=== PATIENT | male | born 1970 | race Caucasian/White ===

== ENCOUNTER → 2016-10-31 | Outpatient (CLI) | payer SELFPAY | END | disposition home or self-care (01) | LOC: LABWHC1 11:35 | PROVIDERS: ATTEND Internal Medicine | DX: Z00.5 Encounter for examination of potential donor of organ and tissue (principal) | CPT/HCPCS: 36415 ==

== ENCOUNTER → 2019-07-25 | Outpatient (CLI) | payer BC ==
--- NOTE | 2019-07-25 23:13 | MR ---
EXAMINATION TYPE: MR knee RT wo con DATE OF EXAM: 07/25/2019 COMPARISON: None HISTORY: Ganglion, right knee, Injury TECHNIQUE: Multiplanar, multisequence imaging of the right knee is performed without IV contrast. FINDINGS: There is anterior and posterior cruciate intact ligaments. There is mild knee joint effusion. There i s horizontal tear of the posterior horn medial meniscus extending to the inferior surface. The latera l meniscus appears intact. The collateral ligaments appear intact. I see no bony destructive process. Joint spaces are fairly normal. There is mild subcutaneous edema anterior to the tibial tubercle. IMPRESSION: There is a horizontal tear of the posterior horn medial meniscus. No evidence of ligamentous tear. Mi ld knee joint effusion. No fracture seen. No popliteal cyst.
== END | disposition home or self-care (01) ==
LOC: RADMRIMAIN 12:59
PROVIDERS: ATTEND Nurse Practitioner Family
DX: S83.8X1A Sprain of other specified parts of right knee, initial encounter (principal); M67.461 Ganglion, right knee

== ENCOUNTER → 2020-10-01 | Outpatient (CLI) | payer BC ==
--- NOTE | 2020-10-01 15:52 | XR ---
EXAMINATION TYPE: XR shoulder complete RT DATE OF EXAM: 10/01/2020 COMPARISON: NONE HISTORY: Pain TECHNIQUE: Shoulder examined in 3 views FINDINGS: The humeral head articulates with the glenoid. The acromio-clavicular junction is normal. No acute fractures or dislocations are evident. A follow up study can be performed 7-10 days from acute trauma for continued pain. IMPRESSION: 1. Normal three-view right Shoulder
--- NOTE | 2020-10-01 15:54 | XR ---
EXAMINATION TYPE: XR cervical spine comp DATE OF EXAM: 10/01/2020 COMPARISON: 09/09/2010 HISTORY: Cervicalgia TECHNIQUE: Five-view cervical spine FINDINGS: No acute osseous abnormality is evident. Foramen are patent. Prevertebral space is normal. Posterior spinal lamellar line is intact. There is some straightening of the cervical spine in the la teral projection. No acute osseous abnormality is evident. IMPRESSION: 1. No acute osseous abnormality cervical spine
== END | disposition home or self-care (01) ==
LOC: RADXRYALE 13:05
PROVIDERS: ATTEND Family Medicine
DX: M25.511 Pain in right shoulder (principal); M54.2 Cervicalgia
CPT/HCPCS: 72050

== ENCOUNTER → 2020-11-05 | Outpatient (CLI) | payer BC ==
--- NOTE | 2020-11-05 20:48 | MR ---
EXAMINATION TYPE: MR shoulder LT wo con DATE OF EXAM: 11/05/2020 COMPARISON: None available. HISTORY: Left shoulder pain. TECHNIQUE: Multiplanar, multisequence imaging of the left shoulder is performed without contrast. FINDINGS: Rotator Cuff: Moderate to high-grade partial thickness tear of the supraspinatus tendon with complain t of small 0.6 x 0.5 cm full-thickness tear of the anterior fibers at the footprint. Mild tendinosis and fraying of the subscapularis tendon cranial fibers. The infraspinatus and teres minor tendons are grossly intact. No significant atrophy or muscular edema of the rotator cuff. Acromioclavicular Joint: Moderate osteoarthritis. Glenohumeral Joint: Mild to moderate osteoarthritis. Labrum: Mild to moderate degeneration of the glenoid labrum. Biceps Tendon: The long head of biceps is in normal location within bicipital groove. Bone marrow signal: No focal abnormal marrow signal is appreciated. Other: Yugkk-yr-clqydjuw amount of fluid in the subacromial-subdeltoid bursa. IMPRESSION: Moderate to high-grade partial thickness tear of the supraspinatus tendon with component of small ant erior full-thickness tear. Associated subacromial-subdeltoid bursitis.
--- NOTE | 2020-11-05 21:32 | MR ---
EXAMINATION TYPE: MR shoulder RT wo con DATE OF EXAM: 11/05/2020 COMPARISON: None available. HISTORY: Right shoulder pain. TECHNIQUE: Multiplanar, multisequence imaging of the right shoulder is performed without contrast. FINDINGS: Rotator Cuff: 1.6 x 1.5 cm full-thickness tear of the supraspinatus tendon anterior fibers of the ten don retraction to the level of the subacromial space. Low to moderate grade partial-thickness tear of the subscapularis tendon cranial fibers and infraspinatus tendon anterior fibers. The teres minor te ndon is grossly intact. Mild atrophy of the supraspinatus muscle. No muscular edema. Acromioclavicular Joint: Moderate to severe osteoarthritis. Glenohumeral Joint: Moderate to severe osteoarthritis. Labrum: Degenerative tearing of the glenoid labrum. Biceps Tendon: The long head of biceps is in normal location within bicipital groove. There is modera te tendinosis of the intra-articular long head biceps tendon. Bone marrow signal: No focal abnormal marrow signal is appreciated. Other: Nppda-ix-vahblldw amount of fluid in the subacromial-subdeltoid bursa. IMPRESSION: Moderate sized, retracted, full-thickness tear of the right supraspinatus tendon anterior fibers. Ass ociated moderate atrophy. Low to moderate grade partial-thickness tear of the subscapularis and infraspinatus tendons. Subacromial-subdeltoid bursitis.
== END | disposition home or self-care (01) ==
LOC: RADMRIMAIN 18:05
PROVIDERS: ATTEND Family Medicine
DX: M75.112 Incomplete rotator cuff tear or rupture of left shoulder, not specified as traumatic (principal); M75.52 Bursitis of left shoulder; M75.121 Complete rotator cuff tear or rupture of right shoulder, not specified as traumatic; M62.511 Muscle wasting and atrophy, not elsewhere classified, right shoulder; M75.51 Bursitis of right shoulder

== ENCOUNTER → 2020-11-16 | Outpatient (CLI) | payer BC ==
--- NOTE | 2020-11-16 23:32 | MR ---
EXAMINATION TYPE: MR brain wo/w con DATE OF EXAM: 11/16/2020 COMPARISON: None HISTORY: Headaches CONTRAST: Standard multiplanar, multisequence MRI departmental protocol utilizing 10 mL intravenous Gadavist ga dolinium contrast. Ventricles have normal size. There is no mass effect nor midline shift. There is no sign of intracran ial hemorrhage. The diffusion images show no evidence of a cortical infarct. The brainstem is intact. Corpus callosum is intact. Sella turcica appears normal. The gross-white matter structures have fairly normal signal pattern. There is no evidence of cerebral edema. There is minimal ethmoid sinus mucosal thickening. There is normal enhancement of the venous sinuses. There is no pathologic enhancement. IMPRESSION: Negative MR scan of the brain. Minimal ethmoid sinusitis.
== END | disposition home or self-care (01) ==
LOC: RADMRIMAIN 15:23
PROVIDERS: ATTEND Family Medicine
DX: I10 Essential (primary) hypertension (principal); R51.9 Headache, unspecified; R25.1 Tremor, unspecified
CPT/HCPCS: 70553; A9585

== ENCOUNTER → 2021-10-14 | Outpatient (CLI) | payer BC ==
--- NOTE | 2021-10-14 12:10 | FL ---
EXAMINATION TYPE: FL barium swallow DATE OF EXAM: 10/14/2021 CLINICAL HISTORY: Dysphasia. History of throat polyps. Recently tried on reflux medication without im provement of symptoms. TECHNIQUE: A double contrast esophagram is performed utilizing air and barium. A total of 22 second s of fluoroscopic time was utilized during procedure and 31 images obtained COMPARISON: None FINDINGS: The esophagus shows normal motility and emptying into the stomach. No evidence of fixed hi atal hernia or stricture noted. No significant gastroesophageal reflux was seen during real time perf ormance of this study. IMPRESSION: No significant abnormality is seen to account for patient's symptoms.
== END | disposition home or self-care (01) ==
LOC: RADUSWWP 10:49
PROVIDERS: ATTEND Otolaryngology
DX: R13.10 Dysphagia, unspecified (principal)
CPT/HCPCS: 74220

== ENCOUNTER → 2021-12-28 | Outpatient (CLI) | payer OTHER ==
[2021-12-28 14:56] LABS: Anion Gap 12.5 mmol/L (10.00-18.00); Carbon Dioxide 22.6 mmol/L (20.0-27.5); Potassium 4.3 mmol/L (3.5-5.5)
[2021-12-28 14:59] LABS: Basophils # (A) 0.04 X 10*3/uL (0.00-0.10); Basophils % (A) 0.7 %; Eosinophils # (A) 0.16 X 10*3/uL (0.04-0.35); Eosinophils % (A) 2.7 %; HCT 45.6 % (39.6-50.0); HGB 14.9 g/dL (13.0-17.0); Immature Grans, Automated 0.3 %; Lymphocytes # (A) 1.87 X 10*3/uL (0.90-5.00); Lymphocytes % (A) 31.2 %; MCH 30.5 pg (27.0-32.0); MCHC 32.7 g/dL (32.0-37.0); MCV 93.4 fL (80.0-97.0); Mean Platelet Volume 9.4 fL (9.5-12.2); Monocytes # (A) 0.61 X 10*3/uL (0.20-1.00); Monocytes % (A) 10.2 %; NRBC Per 100 WBC 0 /100 WBCS (0.0-0.0); Neutrophils % (A) 54.9 %; Platelet Count 246 X 10*3/uL (140-440); RBC 4.88 X 10*6/uL (4.40-5.60); RDW 12.8 % (11.5-14.5)
== END | disposition home or self-care (01) ==
LOC: LABPAT 07:46
PROVIDERS: ATTEND Orthopaedic Surgery
DX: Z01.812 Encounter for preprocedural laboratory examination (principal); M75.42 Impingement syndrome of left shoulder
CPT/HCPCS: 80051; 85025; 93005

== ENCOUNTER 2022-01-11 05:51 | Day surgery (SDC) | payer BC, OTHER ==
--- NOTE | 2022-01-10 23:17 | HP ---
HISTORY AND PHYSICAL REASON FOR ADMISSION: Surgery scheduled for 01/11/2022 HISTORY OF PRESENT ILLNESS: Miller Zamorano is a 51-year-old patient seen with progressive right shoulder pain. Options for treatment were discussed with him. He elected to proceed with right shoulder arthroscopy. Consent was obtained. PAST MEDICAL HISTORY: Noncontributory. PAST SURGICAL HISTORY: Right shoulder arthroscopy. DAILY MEDICATIONS: None. ALLERGIES: None reported. SOCIAL HISTORY: Denies tobacco use. PHYSICAL EVALUATION OF THE RIGHT SHOULDER: Flexion 140 degrees, abduction is 100 degrees, external rotation is 10 degrees with weakness. Tenderness along the anterior lateral acromion and acromioclavicular joint as well as rotator cuff insertion site. Impingement positive at 90 degrees. Cross- body adduction sign is positive. Drop-arm sign is positive. Distal neurovascular exam is intact. RADIOGRAPHS: Right shoulder radiographs revealed a type 2 acromion, acromioclavicular joint osteoarthritis and cystic changes of the greater tuberosity. Right shoulder MRI revealed a full-thickness rotator cuff tendon tear with evidence of previous surgery and osteoarthritis of the acromioclavicular joint. IMPRESSION: 1. Right shoulder impingement with rotator cuff tear. 2. Right shoulder acromioclavicular joint osteoarthritis. PLAN: Right shoulder arthroscopy with subacromial decompression, arthroscopic rotator cuff repair, Nate procedure and debridement. MMODL / IJN: [id number] /
[2022-01-11 06:15] VITALS: RESP 16
[2022-01-11] MEDS ORDERED: LIDOCAINE 1% (10MG/ML) FOR IV START INTRADERMA ONE (06:30)
[2022-01-11] MEDS ORDERED: LACTATED RINGERS 1,000 ML IV ONE (06:30)
[2022-01-11] MEDS ORDERED: ONDANSETRON 4 MG/2 ML VIAL ONE (06:41)
[2022-01-11] MEDS ORDERED: DEXAMETHASONE SOD PHOSPHATE 4 MG/ML 1 ML VIAL IV ONE (06:45)
[2022-01-11] MEDS ORDERED: SODIUM CHLORIDE 0.9% (PF) 10 ML VIAL ONE (07:31)
[2022-01-11] MEDS ORDERED: MIDAZOLAM 2 MG/2 ML VIAL ONE (07:31)
[2022-01-11] MEDS ORDERED: SUCCINYLCHOLINE CHLORIDE 100 MG/5 ML SYR IV ONE (07:31)
[2022-01-11] MEDS ORDERED: fentaNYL (PF) 50 MCG/ML 2 ML AMP ONE (07:31)
[2022-01-11] MEDS ORDERED: PROPOFOL 10 MG/ML 20 ML VIAL IV ONE (07:31)
[2022-01-11] MEDS ORDERED: ROPIVACAINE 5 MG/ML 30 ML VIAL ONE (07:31)
[2022-01-11] MEDS ORDERED: DEXAMETHASONE SOD PHOSPHATE 10 MG/ML 1 ML VIAL ONE (07:31)
[2022-01-11] MEDS ORDERED: LIDOCAINE 1% INJ 10MG/ML (20 ML MDV) ONE (07:31)
--- NOTE | 2022-01-11 07:58 | P.ANPRN ---
Procedure Note - Anesthesia - Nerve Block Performed Right Interscalene Single Time Out Performed: Yes (0701) Date of Procedure: 01/11/22 Procedure Start Time: : Procedure Stop Time: 07:06 Location of Patient: PreOp Indication: Acute Post-Operative Pain, Requested by Surgeon Sedation Type: Sedate with meaningful contact maintained Preparation: Sterile Prep Position: Sitting Catheter: None Needle Types: Pajunk Needle Gauge: 21 Ultrasound used to visualize needle placement: Yes Ultrasound used to observe medication spread: Yes Injectate: 0.5% Ropivacaine (see comment for volume) (21 mL of block solution containing- 15 mL of 0.5% preservative-free ropivacaine mixed with 10 MG of dexamethasone, and 5 mL of preservative free normal saline) Blood Aspirated: No Pain Paresthesia on Injection Noted: No Resistance on Injection: Normal Image Stored and Saved: Yes Events: Uneventful and Well Tolerated
--- NOTE | 2022-01-11 09:20 | P.OP ---
Date of Procedure: 01/11/22 Preoperative Diagnosis: Right shoulder impingement Postoperative Diagnosis: 1. Right shoulder rotator cuff tear 2. Right shoulder acromioclavicular joint osteoarthritis 3. Right shoulder impingement 4. Right shoulder partial long head biceps tendon tear Procedure(s) Performed: 1. Right shoulder arthroscopic rotator cuff repair 2. Right shoulder arthroscopic Nate procedure 3. Right shoulder arthroscopic subacromial decompression 4. Right shoulder arthroscopic biceps tenotomy Implants: 34.75 swivel lock anchors 15.5 Arthrex swivel lock anchor Anesthesia: GETA, regional (Interscalene block) Surgeon: Clint Puga Chummer #1: Romain Fontenot Estimated Blood Loss (ml): 8 Pathology: none sent Condition: stable Disposition: PACU Indications for Procedure: 51-year-old patient seen with progressive right shoulder pain. After treatment options were discussed, he elected to proceed with arthroscopy. Operative Findings: See description of procedure Description of Procedure: Patient underwent an interscalene block by department of anesthesia. The patient was then taken to the operative suite. The patient underwent a general anesthetic by the department of anesthesia. The patient was placed into a lateral position and secured. There was appropriate padding of the bony prominence. Right shoulder was then prepped and draped in normal sterile orthopedic fashion. We placed the extremity in 10 pounds of longitudinal traction. A posterior incision was now made for a posterior working portal site. The trocar and cannula were inserted into the glenohumeral joint. Arthroscopy was initiated. Spinal needle was now inserted anteriorly, to ascertain the anterior working portal site. An incision was now made in that area, a trocar was inserted followed by a probe. There were some grade 1 chondromalacia changes of the humeral head and glenoid fossa without significant osteochondral tear present. The biceps tendon was partially torn with hyperemia. There was a very large rotator cuff tendon tear that I could visualize easily from the glenohumeral joint. I performed an arthroscopic biceps tenotomy. I again probed the labrum and it was found to be stable. Instruments were now removed from glenohumeral joint. Utilizing the posterior working portal site, the trocar and cannula were inserted into the subacromial space. Arthroscopy initiated. I made an incision 2 fingerbreadths lateral to the acromion. I introduced my trocar followed by my ArthroCare ablator. I now began ablating thick subacromial bursal tissue, which exposed the undersurface of the anterior acromion. There was diminished subacromial space. There was a very prominent anterior acromion. A motorized bur was introduced and a subacromial decompression was performed. I also excised some osteophytes off the inferior aspect of the distal clavicle. The AC joint was visualized and noted to be fairly arthritic. The motorized bur was introduced in the anterior portal site and a Nate procedure was performed without difficulty, decompressing the AC joint nicely. I turned my attention to the rotator cuff. There was a 3.54 cm rotator cuff tear. There was evidence of a previous repair with residual suture material centrally in the footprint. I debrided that suture material. I grasped on the tendon over stable to barely pull it over the footprint. I performed a release proximally. I again pull the tendon I was able to get over the footprint reasonably well with some moderate tension. I debrided the margins getting down to stable tendon tissue. I introduced my motorized bur and abraded the footprint area, getting some petechial bleeding. I now made an accessory portal site off the lateral aspect of the acromion. I punched 2 holes medial for medial row fixation with the assistance of Chente STEIN carefully tapping the punch with a mallet as I held the punch and the camera. I now introduced both Arthrex 4.75 swivel lock anchors into the pre-punched holes and Chente STEIN tapped them with the mallet as I held anchors and the camera. Chente STEIN now screwed the anchors in place a while I held the anchor guide and camera. All 8 limbs of suture were now passed through good bites of rotator cuff tendon. I now punched 2 holes for lateral row fixation again I held the punch and camera while Chente STEIN used a mallet to tap in the punch. We now passed sutures through both anchors and individually I introduced the anchors into the pre-punch holes I held the anchor guide in position with one hand holding the camera with the other hand while Chente STEIN tensioned the sutures and screwed in the anchors one at a time. All residual suture limbs were now clipped. We had good compression of the tendon along the entire footprint. Instruments now removed from the portal sites. All portal sites were approximated with nylon suture. Sterile dressings were applied followed by a shoulder immobilizer. Romain STEIN assisted in this complex case. The patient was awakened, transferred to a bed, and taken to recovery in stable condition.
[2022-01-11 09:29] VITALS: TEMP 97
[2022-01-11 10:43] VITALS: BP 104/71; PULSE 59
== END 2022-01-11 11:32 | disposition home or self-care (01) ==
LOC: OR 05:51
PROVIDERS: ATTEND Orthopaedic Surgery
DX: M75.101 Unspecified rotator cuff tear or rupture of right shoulder, not specified as traumatic (principal); M19.011 Primary osteoarthritis, right shoulder; M25.811 Other specified joint disorders, right shoulder; S46.111A Strain of muscle, fascia and tendon of long head of biceps, right arm, initial encounter; X58.XXXA Exposure to other specified factors, initial encounter; M94.211 Chondromalacia, right shoulder; M25.711 Osteophyte, right shoulder; Z90.49 Acquired absence of other specified parts of digestive tract; Z98.890 Other specified postprocedural states
CPT/HCPCS: 64415; 76942; 29826; 29827; 29824; C1713 ×3; J2250; J1100 ×2; J0690; J2405; J2001; J3010; J2795; J0330; J2704

== ENCOUNTER → 2023-06-15 | Outpatient (CLI) | payer BC ==
[2023-06-15 10:21] LABS: Basophils % (A) 0 %; Eosinophils # (A) 0.2 k/uL (0-0.7); Eosinophils % (A) 3 %; HCT 46.9 % (39.0-53.0); HGB 15.7 gm/dL (13.0-17.5); Lymphocytes # (A) 2.5 k/uL (1.0-4.8); Lymphocytes % (A) 33 %; MCH 31.1 pg (25.0-35.0); MCHC 33.5 g/dL (31.0-37.0); MCV 92.6 fL (80.0-100.0); Monocytes # (A) 0.5 k/uL (0-1.0); Monocytes % (A) 6 %; Neutrophils # (A) 4.2 k/uL (1.3-7.7); Neutrophils % (A) 55 %; Platelet Count 270 k/uL (150-450); RBC 5.06 m/uL (4.30-5.90); RDW 12.9 % (11.5-15.5); WBC 7.6 k/uL (3.8-10.6)
[2023-06-15 15:56] LABS: BUN/Creat Ratio 17.67 Ratio (12.00-20.00); Blood Urea Nitrogen 15.9 mg/dL (9.0-27.0); Calcium 10.4 mg/dL (8.7-10.3); Carbon Dioxide 26.6 mmol/L (21.6-31.8); Chloride 103 mmol/L (96-109); Glucose 92 mg/dL (70-110); Potassium 5.1 mmol/L (3.5-5.5); Sodium 140 mmol/L (135-145)
--- NOTE | 2023-06-27 21:53 | MR ---
EXAMINATION TYPE: MR elbow LT wo con DATE OF EXAM: 06/15/2023 COMPARISON: Radiograph 06/12/2023 HISTORY: 52-year-old male Left elbow pain, lifting injury TECHNIQUE: Multiplanar, multisequence images of the left elbow were obtained without IV contrast. FINDINGS: The exam demonstrates distal biceps tendon rupture. The stump is retracted by 5.6 cm to the level of the elbow joint line. There is corresponding edema along the medial aspect of the anterior forearm along the superficial fa scia. Edema and hemorrhage along the intervening gap. The radial collateral ligament is torn. There is partial tear of the humeral attachment of the radial ulnar collateral ligament. Contiguous deep sided tearing extends into the common extensor tendon jennifer gin. The common flexor tendon origin pronator mass appear intact. The underlying UCL appears intact. The radiocapitellar and ulnar trochlear joints appear intact. Physiologic joint fluid. Triceps insertion is intact. Normal appearance to the ulnar nerve within the sulcus or nurse. Mild edema in the supinator muscle, likely reactive to the distal biceps tendon rupture. No acute or healing fracture or abnormal bone marrow edema is seen. IMPRESSION: 1. Distal biceps tendon rupture. The balled up stump is retracted by 5.6 cm to the level of the elbow joint line. Associated edema and hemorrhage within the intervening gap. 2. Additional edema along the superficial aspect of the anteromedial forearm suggests associated tear of the lacertus fibrosis. 3. Torn RCL at the humeral attachment. Partial tear of the lateral ulnar collateral ligament at the h umeral attachment. Contiguous tear extending into the deep insertion of the common extensor tendon or igin.
== END | disposition home or self-care (01) ==
LOC: RADMRIMAIN 07:30
PROVIDERS: ATTEND Orthopaedic Surgery Hand Surgery
DX: S53.432A Radial collateral ligament sprain of left elbow, initial encounter (principal); S46.212A Strain of muscle, fascia and tendon of other parts of biceps, left arm, initial encounter; S53.442A Ulnar collateral ligament sprain of left elbow, initial encounter; R60.0 Localized edema
CPT/HCPCS: 80048; 85025

== ENCOUNTER 2023-06-19 11:16 | Day surgery (SDC) | payer BC ==
--- NOTE | 2023-06-18 12:44 | P.HPOR ---
History of Present Illness H&P Date: 06/18/23 Subjective: This is a 52 year old male that presents today for initial evaluation regarding a left elbow injury that occurred on 05/12/2023 when he was lifting a piece of fencing and felt immediate pop and had pain, swelling and bruising in the anterior portion of his elbow. He went to urgent care where x-rays were taken which revealed no acute fracture. He's had continued pain with full extension. Any type of twisting movement of the elbow. 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 Physical Examination: LUE: AIN/PIN/Radial/Ulnar/Median motor intact. Radial/Ulnar/Median SILT. 2+/4 Radial/Ulnar pulses palpated. 5/5 APB, 5/5 FDI. Negative Finkelsteins, negative CMC grind, negative Durkan's compression. Distal biceps tendon not palpable antecubital fossa with hook test. Pain with resisted supination and resisted elbow flexion. Lowell deformity present. Imaging: X-Rays of the left elbow 3 view taken in office today demonstrate no abnormality. MRI of left elbow obtained on 06/15/23 demonstrates left distal biceps tendon complete rupture with 5cm of proximal retraction Impression: 1.) Left distal biceps tendon rupture Plan: Diagnosis and treatment options were discussed with the patient. He has findings concerning for a left distal biceps tendon rupture and is now 1 month out from the injury. Both operative and nonoperative nonoperative treatment options were discussed and the patient wishes to proceed with surgical intervention in the form of a left distal biceps tendon repair. Risks and benefits of surgery including bleeding, infection, damage to surrounding tissue, need for further surgery, residual numbness were discussed and the patient wished to go forward with surgery. He works as a truck driver helper and I anticipate 2 weeks off post operatively, if he desires he can go back to driving at that time with no loading or unloading after 2 weeks but is to remain non weightbearing for the first 6 weeks post operatively.The patient was agreeable with this plan. CC: Michael Chaudhary DO Orthopedic Hand/Upper Extremity Surgeon Past Medical History Past Medical History: Musculoskeletal Disorder Additional Past Medical History / Comment(s): injury to left biceps tendon 3-4 weeks ago History of Any Multi-Drug Resistant Organisms: None Reported Past Surgical History: Appendectomy, Orthopedic Surgery Additional Past Surgical History / Comment(s): right shoulder arthroscopy x2 Past Anesthesia/Blood Transfusion Reactions: No Reported Reaction Smoking Status: Former smoker Medications and Allergies Home Medications Medication Instructions Recorded Confirmed Type No Known Home Medications 06/13/23 06/13/23 History Allergies Allergy/AdvReac Type Severity Reaction Status Date / Time No Known Allergies Allergy Verified 06/13/23 13:43 Physical Examination Osteopathic Statement: *. No significant issues noted on an osteopathic structural exam other than those noted in the History and Physical/Consult.
[2023-06-19] MEDS ORDERED: LACTATED RINGERS 1,000 ML IV ONE ×2 (11:35→14:56)
[2023-06-19] MEDS ORDERED: ONDANSETRON 4 MG/2 ML VIAL ONE (11:47)
[2023-06-19] MEDS ORDERED: HYDROmorphone 0.5 MG/0.5 ML SYRINGE IVP PRN (12:12)
[2023-06-19] MEDS ORDERED: MIDAZOLAM 2 MG/2 ML VIAL IV PRN (12:12)
[2023-06-19] MEDS ORDERED: LIDOCAINE 1% (10MG/ML) FOR IV START INTRADERMA PRN (12:12)
[2023-06-19] MEDS ORDERED: DEXAMETHASONE SOD PHOSPHATE 4 MG/ML 1 ML VIAL IV ONE (12:12)
[2023-06-19] MEDS ORDERED: ONDANSETRON 4 MG/2 ML VIAL IVP ONE (12:12)
[2023-06-19] MEDS ORDERED: LACTATED RINGERS 1,000 ML IV SCH (12:12)
[2023-06-19] MEDS ORDERED: MIDAZOLAM 2 MG/2 ML VIAL IVP ONE (12:41)
--- NOTE | 2023-06-19 12:50 | P.ANPRN ---
Procedure Note - Anesthesia - Nerve Block Performed Left Supraclavicular Time Out Performed: Yes (12:40) Date of Procedure: 06/19/23 Procedure Start Time: :40 Procedure Stop Time: :44 Location of Patient: PreOp Indication: Acute Post-Operative Pain, Requested by Surgeon (Dr Camacho) Sedation Type: Sedate with meaningful contact maintained Preparation: Sterile Prep Position: Supine Catheter: None Needle Types: Pajunk Needle Gauge: Other (see comment) (22g) Ultrasound used to visualize needle placement: Yes Ultrasound used to observe medication spread: Yes Injectate: 0.5% Ropivacaine (see comment for volume) (20cc +Decadron 4mg) Blood Aspirated: No Pain Paresthesia on Injection Noted: No Resistance on Injection: Normal Image Stored and Saved: Yes Events: Uneventful and Well Tolerated
[2023-06-19] MEDS ORDERED: ROPIVACAINE 5 MG/ML 30 ML VIAL ONE (12:53)
[2023-06-19] MEDS ORDERED: MIDAZOLAM 2 MG/2 ML VIAL ONE (12:53)
[2023-06-19] MEDS ORDERED: LIDOCAINE 2% INJ 20 MG/ML (2 ML VIAL) ONE (12:53)
[2023-06-19] MEDS ORDERED: PROPOFOL 10 MG/ML 20 ML VIAL IV ONE (12:53)
[2023-06-19] MEDS ORDERED: DEXAMETHASONE SOD PHOSPHATE 4 MG/ML 1 ML VIAL ONE (12:53)
[2023-06-19] MEDS ORDERED: fentaNYL (PF) 50 MCG/ML 2 ML AMP ONE (12:53)
[2023-06-19 15:24] VITALS: RESP 16; TEMP 97.6
[2023-06-19] MEDS ORDERED: HYDROcodone/APAP 5-325MG 1 EACH TAB ONE (16:11)
[2023-06-19 16:29] VITALS: BP 138/71; PULSE 71
--- NOTE | 2023-06-20 07:54 | P.OP ---
Date of Procedure: 06/19/23 Preoperative Diagnosis: Left distal biceps tendon rupture Postoperative Diagnosis: Left distal biceps tendon rupture Procedure(s) Performed: Left distal biceps tendon repair (20285) Anesthesia: KWAKU, regional Surgeon: Sergio Camacho Estimated Blood Loss (ml): 0 Pathology: none sent Condition: stable Disposition: PACU Description of Procedure: This is a 52 year old male with a history of a left distal biceps tendon rupture that occurred while lifting heavy fence 1 month prior when he felt a pop and had immediate pain and swelling in the left elbow. He presents today for left distal biceps tendon rupture repair. Risks and benefits of surgery were discussed with the patient including bleeding, damage to surrounding tissue, infection, paresthesias, need for further surgery as well as risks of anesthesia including pulmonary embolism and even and the patient wished to proceed with surgical intervention. The patients was seen in the pre-operative area by myself. Consent and H&P were completed and updated. The correct extremity was marked in the pre-operative area by myself and all other questions were answered. Patient received an upper extremity nerve block by the department of anesthesia. He then was brought to the operating room by the department of anesthesia. He was transferred to the operative table and a rolling hand table was brought to the side of the operative extremity. The patient was then drifted off to sleep by the department of anesthesia. A nonsterile tourniquet was then applied to the operative extremity and the left upper extremity was then prepped and draped in normal sterile fashion. Pre-operative time out was performed indicating the correct patient, procedure and laterality. All in the room agreed. Pre-operative antibiotics were given prior to skin incision. The operative extremity was the exsanguinated with an esmarch bandage and the tourniquet was inflated to 250mmHg. 15 blade scalpel was used to make a 4cm transverse incision 3 cm distal to the anterior elbow antecubital fossa crease. Blunt dissection was then performed in subcutaneous tissues, retractors were placed taking care to not put excessive force laterally to avoid pressure on the LABCN. Seroma was identified and the distal end of the biceps tendon was identified just proximal to the bicipital grove with adhesions formed to the surrounding anshul and vascular structures which were carefully dissected, the end of the tendon was then grasped with an Julianna clamp. Edges were trimmed of degenerative tissue to create a more profiled distal tip. A number 2 looped fiberwire was then used to sequentially grasp the tendon starting 2.5cm proximal to the distal end. The last stitch was placed in a locking fashion. Tendon sizer was then utilized the distal tendon was able to fit through a 7mm hole. Attention was then brought back to the antecubital fossa and deeper dissection was taken down to the radial tuberosity. Tendon remnants were debrided carefully with rongeur. The forearm was then maximally supinated to reveal the bicipital tuberosity on the radius in order to move the PIN nerve as far radial as possible. A 3.2mm guide pin was then inserted bicortically into the radial tuberosity aimed 30 degrees ulnarly to avoid PIN damage. Correct placement was then confirmed on flouroscopy. A 8mm drill was then used to drill the near cortex only however the far cortex was also drilled, therefore decision was made to repeat the 3.2mm guide pin insertion slightly proximal still located in the radial tuberosity which was then overdrilled with ease unicortically with a 7.5mm drill. The wound was then copiously irrigated. The free ends of the suture where then passed through the arthrex cortical button to engage the tension slide mechanism. Cortical button was placed into the button inserted and inserted through the drill hole and deployed. Tension was then applied to snug the cortical button flush against the dorsal cortex. The free suture limbs were then tensioned to fully dock the tendon in the bone tunnel. A free needle was then used to pass one limb through the tendon and a knot was tied. Mini C arm was then used to confirm that the button had flipped and was lying flush against the cortex. The wound was then irrigated. Closure was performed with interrupted 4-0 monocryl suture followed by a running subcuticular suture. Exofin glue was then applied to the wound. 4x4s, webril and a cast padding and an edna wrap was applied. The tourniquet was let down and the hand had immediate normal perfusion. The patient was then woken and transferred to PACU in stable condition. [place] STEIN was present for the case and aided in assistance in hardware placement and protection of vital neurovascular structures. Sergio Camacho DO Orthopedic Hand/Upper Extremity Surgeon
== END 2023-06-19 16:55 | disposition home or self-care (01) ==
LOC: OR 11:16
PROVIDERS: ATTEND Orthopaedic Surgery Hand Surgery
DX: S46.212A Strain of muscle, fascia and tendon of other parts of biceps, left arm, initial encounter (principal); G89.29 Other chronic pain; X58.XXXA Exposure to other specified factors, initial encounter; Z90.89 Acquired absence of other organs; Z98.890 Other specified postprocedural states; Z87.891 Personal history of nicotine dependence; Z79.899 Other long term (current) drug therapy
CPT/HCPCS: 24342; 64415; 84132; C1713; J2250; J1100; J0690; J2405; J3010; J2795; J2704; J2001

== ENCOUNTER → 2024-09-02 | Outpatient (CLI) | payer OTHER ==
--- NOTE | 2024-09-04 11:17 | MR ---
EXAMINATION TYPE: MR shoulder LT wo con DATE OF EXAM: 09/02/2024 COMPARISON: Prior MRI left shoulder November 05, 2020 HISTORY: Left shoulder pain, Injured Aug 20, 2024, Painful to raise arm TECHNIQUE: Multiplanar, multisequence imaging of the left shoulder is performed without contrast. FINDINGS: Rotator Cuff: More prominent increased signal along the infraspinatus tendon. Increased signal surrou nding fluid in the supraspinatus tendon. More prominent focal tear at the articular surface with tend on retraction 8 mm on coronal image 18. Heterogeneous but intact subscapularis tendon. Rotator cuff m uscle bulk is preserved. Acromioclavicular Joint: Persistent moderate to severe narrowing and moderate spurring with moderate capsular hypertrophy Glenohumeral Joint: Moderate size joint effusion remains present. No new spurring. Narrowing is again seen. Labrum: Persistent heterogeneous increased signal superior labrum consistent with degenerative tear. Biceps Tendon: The long head of biceps is in normal location within bicipital groove. Bone marrow signal: No focal abnormal marrow signal is appreciated. Other: No additional significant abnormality is appreciated. IMPRESSION: 1. More prominent tendinosis or full-thickness retracted tear of the supraspinatus tendon. 2. More prominent tendinosis of the infraspinatus and subscapularis tendons. 3. Stable moderate to severe degenerative changes in the left shoulder as detailed above. [facility], , 09/04/2024 11:15 AM
== END | disposition home or self-care (01) ==
LOC: RADMRIMAIN 17:57
PROVIDERS: ATTEND Orthopaedic Surgery
DX: M19.012 Primary osteoarthritis, left shoulder (principal); M67.814 Other specified disorders of tendon, left shoulder; S46.012A Strain of muscle(s) and tendon(s) of the rotator cuff of left shoulder, initial encounter

== ENCOUNTER → 2024-09-23 | Outpatient (CLI) | payer OTHER ==
[2024-09-23 19:06] LABS: Anion Gap 13.8 mmol/L (4.00-12.00); Carbon Dioxide 21.2 mmol/L (21.6-31.8); Potassium 4.8 mmol/L (3.5-5.5)
[2024-09-23 19:52] LABS: Basophils # (A) 0.05 X 10*3/uL (0.00-0.10); Basophils % (A) 0.6 %; Eosinophils # (A) 0.24 X 10*3/uL (0.04-0.35); HCT 43.5 % (39.6-50.0); HGB 14.2 g/dL (13.0-17.0); MCH 30.2 pg (27.0-32.0); MCHC 32.6 g/dL (32.0-37.0); MCV 92.6 FL (80.0-97.0); Mean Platelet Volume 9.1 FL (9.5-12.2); Monocytes # (A) 0.65 X 10*3/uL (0.20-1.00); NRBC Per 100 WBC 0 X 10*3/uL (0.00-0.01); Neutrophils # (A) 4.14 X 10*3/uL (1.80-7.70); Neutrophils % (A) 51.2 %; Platelet Count 274 X 10*3/uL (140-440)
== END | disposition home or self-care (01) ==
LOC: LABPAT 12:51
PROVIDERS: ATTEND Orthopaedic Surgery
DX: Z01.812 Encounter for preprocedural laboratory examination (principal); M75.42 Impingement syndrome of left shoulder
CPT/HCPCS: 80051; 85025

== ENCOUNTER 2024-10-06 05:45 | Day surgery (SDC) | payer BC, OTHER ==
[2024-10-02 15:09] VITALS: BMI 35.1
--- NOTE | 2024-10-05 21:14 | HP ---
HISTORY AND PHYSICAL DATE OF SURGERY: 10/06/2024. HISTORY OF PRESENT ILLNESS: Hakan Zamorano is a 53-year-old patient seen with progressive left shoulder pain. We discussed options regarding treatment. He elected to proceed with left shoulder arthroscopy. Consent was obtained. PAST MEDICAL HISTORY: Gastroesophageal reflux disease. PAST SURGICAL HISTORY: Right shoulder rotator cuff repair. DAILY MEDICATIONS: 1. Omeprazole. 2. Naprosyn. ALLERGIES: None. SOCIAL HISTORY: He denies tobacco use. PHYSICAL EVALUATION OF THE LEFT SHOULDER: Flexion is 100 degrees. Abduction is 80 degrees. External rotation is 20 degrees with pain and weakness. He has tenderness along the anterolateral acromion and rotator cuff insertion. Impingement is positive at 70 degrees. Cross-body adduction sign is positive. Drop-arm sign is positive. Distal neurovascular exam is intact. IMAGING STUDIES: Left shoulder radiographs revealed a type 2/3 acromion evidence for acromioclavicular joint osteoarthritis. Left shoulder MRI revealed a retracted rotator cuff tendon tear and moderate to severe acromioclavicular joint osteoarthritis. IMPRESSION: 1. Left shoulder impingement with rotator cuff tear. 2. Left shoulder acromioclavicular joint osteoarthritis. PLAN: Left shoulder arthroscopy with subacromial decompression, arthroscopic rotator cuff repair, Nate procedure, and debridement. MMODL / IJN: [id number] /
[2024-10-06] MEDS ORDERED: SCOPOLAMINE 1 MG/72 HR PATCH TRANSDERM ONE (06:09)
[2024-10-06 06:40] VITALS: TEMP 97
[2024-10-06] MEDS: LACTATED RINGERS 1,000 ML IV SCH (06:41)
[2024-10-06] MEDS: ONDANSETRON 4 MG/2 ML VIAL IVP ONE (06:42)
[2024-10-06] MEDS: DEXAMETHASONE SOD PHOSPHATE 4 MG/ML 1 ML VIAL IV ONE (06:42)
[2024-10-06] MEDS: IV FLUID CONTINUATION 1,000 ML IV ONE (06:46)
[2024-10-06] MEDS ORDERED: HYDROmorphone 0.5 MG/0.5 ML SYRINGE IVP PRN (07:00)
[2024-10-06] MEDS: MIDAZOLAM 2 MG/2 ML VIAL IV PRN (07:11)
[2024-10-06] MEDS: fentaNYL (PF) 50 MCG/ML 2 ML AMP IVP STA (07:12)
[2024-10-06] MEDS ORDERED: SUCCINYLCHOLINE CHLORIDE 200 MG/10 ML VIAL IV ONE (07:23)
[2024-10-06] MEDS ORDERED: PROPOFOL 10 MG/ML 20 ML VIAL IV ONE (07:23)
[2024-10-06] MEDS ORDERED: LIDOCAINE 1% INJ 10MG/ML (20 ML MDV) ONE (07:23)
[2024-10-06] MEDS ORDERED: fentaNYL (PF) 50 MCG/ML 2 ML AMP ONE (07:23)
[2024-10-06] MEDS ORDERED: ROPIVACAINE 5 MG/ML 30 ML VIAL ONE (07:23)
--- NOTE | 2024-10-06 09:34 | P.OP ---
Date of Procedure: 10/06/24 Preoperative Diagnosis: Left shoulder impingement Postoperative Diagnosis: 1. Left shoulder rotator cuff tear 2. Left shoulder impingement 3. Left shoulder bicipital tendinitis/partial tear 4. Left shoulder acromioclavicular joint osteoarthritis 5. Left shoulder superficial labral tear Procedure(s) Performed: 1. Left shoulder arthroscopic rotator cuff repair 2. Left shoulder arthroscopic subacromial decompression 3. Left shoulder arthroscopic biceps tenodesis 4. Left shoulder arthroscopic Nate procedure 5. Left shoulder arthroscopic debridement labral tear Implants: 5Arthrex 4.75 swivel lock anchors Anesthesia: GETA, regional (Interscalene block) Surgeon: Clint Puga Special Education Teaching Assistant #1: Romain Fontenot Estimated Blood Loss (ml): 10 Pathology: none sent Condition: stable Disposition: PACU Indications for Procedure: 53-year-old patient seen with progressive left shoulder pain. After having treatment options discussed, he elected to proceed with arthroscopy. Operative Findings: See description of procedure Description of Procedure: Patient underwent an interscalene block by department of anesthesia. The patient was then taken to the operative suite. The patient underwent a general anesthetic by the department of anesthesia. The patient was placed into a lateral position and secured. There was appropriate padding of the bony prominence. Left shoulder was then prepped and draped in normal sterile orthopedic fashion. We placed the extremity in 10 pounds of longitudinal traction. A posterior incision was now made for a posterior working portal site. The trocar and cannula were inserted into the glenohumeral joint. Arthroscopy was initiated. Spinal needle was now inserted anteriorly, to ascertain the anterior working portal site. An incision was now made in that area, a trocar was inserted followed by a probe. There was partial tearing and hyperemia long head biceps tendon. There was some superficial tearing of the labrum. There was no significant chondromalacia present. I could obviously see a full- thickness rotator cuff tear from the glenohumeral joint. I introduced a motorized shaver and debrided that labral tear getting down to stable labral tissue. I decided to proceed with arthroscopic biceps tenodesis. I introduced a cannula through the anterior portal site. I passed a loop and tack type stitch through the biceps tendon. I released the biceps from the superior labral anchor. With the assistance of Chente STEIN partial hole at the interval for insertion of an anchor. The suture limb was passed through the eyelet of an Arthrex 4.75 swivel lock anchor. I placed the eyelet into the preplanned hole, held in position while Chente STEIN tensioned the suture and deployed the anchor with good fixation noted. The residual suture limb was clipped. We had a stable biceps tenodesis. The residual labrum was probed and was found to be stable. Instruments were now removed from glenohumeral joint. Utilizing the posterior working portal site, the trocar and cannula were inserted into the subacromial space. Arthroscopy initiated. I made an incision 2 fingerbreadths lateral to the acromion. I introduced my trocar followed by my ArthroCare ablator. I now began ablating thick subacromial bursal tissue, which exposed the undersurface of the anterior acromion. There was diminished subacromial space. There was a very prominent anterior acromion. A motorized bur was introduced and a subacromial decompression was performed. I also excised some osteophytes off the inferior aspect of the distal clavicle. The AC joint was visualized and noted to be fairly arthritic. The motorized bur was introduced in the anterior portal site and a Nate procedure was performed without difficulty removing 8 mm of bone off the distal clavicle, decompressing the AC joint nicely. I turned my attention to the rotator cuff. There was a 2.5 cm rotator cuff tear. I debrided the margins getting down to stable tendon tissue. I introduced my motorized bur and abraded the footprint area, getting some petechial bleeding. I now made an accessory portal site off the lateral aspect of the acromion. I punched to holes medial for medial row fixation with the assistance of Chente STEIN carefully tapping the punch with a mallet as I held the punch and the camera. I now introduced both anchors into the pre-p unched holes and Chente STEIN tapped them with the mallet as I held anchors and the camera. Chente STEIN now screwed the anchors in place a while I held the anchor guide and camera. All 8 limbs of suture were now passed through good bites of rotator cuff tendon. I now punched 2 holes for lateral row fixation again I held the punch and camera while Chente STEIN used a mallet to tap in the punch. We now passed sutures through both anchors and individually I introduced the anchors into the pre-punch holes I held the anchor guide in position with one hand holding the camera with the other hand while Chente STEIN tensioned the sutures and screwed in the anchors one at a time. All residual suture limbs were now clipped. We had good compression of the tendon along the entire footprint. Instruments now removed from the portal sites. All portal sites were approximated with nylon suture. Sterile dressings were applied followed by a shoulder immobilizer. Romain STEIN assisted in this complex case. The patient was awakened, transferred to a bed, and taken to recovery in stable condition.
--- NOTE | 2024-10-06 10:42 | P.ANPRN ---
Procedure Note - Anesthesia - Nerve Block Performed Left Interscalene Single Time Out Performed: Yes (0711) Date of Procedure: 10/06/24 Procedure Start Time: : Procedure Stop Time: : Location of Patient: PreOp Indication: Acute Post-Operative Pain, Requested by Surgeon Specifically requested for management of pain by DrNidia: Clint Puga Sedation Type: Sedate with meaningful contact maintained Preparation: Sterile Prep Position: Supine Catheter: None Needle Types: Pajunk Needle Gauge: 21 Ultrasound used to visualize needle placement: Yes Ultrasound used to observe medication spread: Yes Injectate: 0.5% Ropivacaine (see comment for volume) (30cc) Blood Aspirated: No Pain Paresthesia on Injection Noted: No Resistance on Injection: Normal Image Stored and Saved: Yes Events: Uneventful and Well Tolerated
[2024-10-06 10:47] VITALS: RESP 18
[2024-10-06 11:11] VITALS: BP 106/70; PULSE 73
== END 2024-10-06 11:35 | disposition home or self-care (01) ==
LOC: OR 05:45
PROVIDERS: ATTEND Orthopaedic Surgery
DX: S46.012A Strain of muscle(s) and tendon(s) of the rotator cuff of left shoulder, initial encounter (principal); M75.22 Bicipital tendinitis, left shoulder; M19.012 Primary osteoarthritis, left shoulder; K21.9 Gastro-esophageal reflux disease without esophagitis; Z79.899 Other long term (current) drug therapy; X58.XXXA Exposure to other specified factors, initial encounter
CPT/HCPCS: 29824; 29827; 29828; 64415; C1713 ×2; J2250; J0330; J1100; J0690; J2405; J2003; J3010; J2795; J2704

== ENCOUNTER → 2025-05-12 | Outpatient (CLI) | payer BC ==
[2025-05-12 15:43] LABS: ALT 62 U/L (10-49); AST 36 U/L (14-35); Albumin 4.6 g/dL (3.8-4.9); Albumin/Globulin Ratio 2.19 Ratio (1.60-3.17); Alkaline Phosphatase 80 U/L (41-126); Anion Gap 11.90 mmol/L (4.00-12.00); BUN/Creat Ratio 15.00 Ratio (12.00-20.00); Blood Urea Nitrogen 13.5 mg/dL (9.0-27.0); Calcium 9.6 mg/dL (8.7-10.3); Carbon Dioxide 26.1 mmol/L (21.6-31.8); Chloride 104 mmol/L (96-109); Cholesterol 157.00 mg/dL (0.00-200.00); Globulin 2.1 g/dL (1.6-3.3); Glucose 108 mg/dL (70-110); HDL Cholesterol 31.80 mg/dL (40.00-60.00); LDL Cholesterol,Calculated 80.8 mg/dL (0.0-131.0); Potassium 4.6 mmol/L (3.5-5.5); Prostate Specific Antigen 2.18 ng/mL (0.000-3.500); Sodium 142 mmol/L (135-145); Total Protein 6.7 g/dL (6.2-8.2); Triglycerides 222.00 mg/dL (0.00-149.00); VLDL Calculation 44.40 mg/dL (5.00-40.00)
[2025-05-12 15:58] LABS: Basophils # (A) 0.05 X 10*3/uL (0.00-0.10); Basophils % (A) 0.6 %; Eosinophils # (A) 0.16 X 10*3/uL (0.04-0.35); Eosinophils % (A) 2.0 %; HCT 44.0 % (39.6-50.0); HGB 14.3 g/dL (13.0-17.0); Immature Grans, Automated 0.40 %; Lymphocytes # (A) 2.32 X 10*3/uL (0.90-5.00); Lymphocytes % (A) 29.4 %; MCH 30.2 pg (27.0-32.0); MCHC 32.5 g/dL (32.0-37.0); MCV 93.0 FL (80.0-97.0); Monocytes # (A) 0.60 X 10*3/uL (0.20-1.00); Monocytes % (A) 7.6 %; NRBC Per 100 WBC 0 X 10*3/uL (0.00-0.01); Neutrophils # (A) 4.74 X 10*3/uL (1.80-7.70); Neutrophils % (A) 60.0 %; Platelet Count 258 X 10*3/uL (140-440); RBC 4.73 X 10*6/uL (4.40-5.60); RDW 12.7 % (11.5-14.5); WBC 7.90 X 10*3/uL (4.50-10.00)
== END | disposition home or self-care (01) ==
LOC: LABWHC1 10:59
PROVIDERS: ATTEND Family Medicine
DX: Z12.5 Encounter for screening for malignant neoplasm of prostate (principal); I10 Essential (primary) hypertension; K21.00 Gastro-esophageal reflux disease with esophagitis, without bleeding; R74.01 Elevation of levels of liver transaminase levels; Z79.899 Other long term (current) drug therapy
CPT/HCPCS: 36415; 80053; 80061; 84153; 84443; 85025

== ENCOUNTER → 2025-05-13 | Outpatient (CLI) | payer BC ==
[2025-05-13 16:00] LABS: Basophils # (A) 0.03 X 10*3/uL (0.00-0.10); Basophils % (A) 0.4 %; Eosinophils # (A) 0.18 X 10*3/uL (0.04-0.35); Eosinophils % (A) 2.2 %; HCT 45.5 % (39.6-50.0); HGB 15.2 g/dL (13.0-17.0); Immature Grans, Automated 0.40 %; Lymphocytes # (A) 2.54 X 10*3/uL (0.90-5.00); Lymphocytes % (A) 31.2 %; MCH 30.4 pg (27.0-32.0); MCHC 33.4 g/dL (32.0-37.0); MCV 91.0 FL (80.0-97.0); Monocytes # (A) 0.85 X 10*3/uL (0.20-1.00); Monocytes % (A) 10.5 %; NRBC Per 100 WBC 0.02 X 10*3/uL (0.00-0.01); Neutrophils # (A) 4.50 X 10*3/uL (1.80-7.70); Neutrophils % (A) 55.3 %; Platelet Count 244 X 10*3/uL (140-440); RBC 5.00 X 10*6/uL (4.40-5.60); RDW 12.9 % (11.5-14.5); WBC 8.13 X 10*3/uL (4.50-10.00)
[2025-05-13 18:47] LABS: ALT 66 U/L (10-49); AST 44 U/L (14-35); Albumin 4.6 g/dL (3.8-4.9); Albumin/Globulin Ratio 2.09 Ratio (1.60-3.17); Alkaline Phosphatase 79 U/L (41-126); Anion Gap 15.90 mmol/L (4.00-12.00); BUN/Creat Ratio 15.30 Ratio (12.00-20.00); Blood Urea Nitrogen 15.3 mg/dL (9.0-27.0); Calcium 9.6 mg/dL (8.7-10.3); Carbon Dioxide 18.1 mmol/L (21.6-31.8); Chloride 107 mmol/L (96-109); Cholesterol 154.00 mg/dL (0.00-200.00); Globulin 2.2 g/dL (1.6-3.3); Glucose 96 mg/dL (70-110); HDL Cholesterol 32.90 mg/dL (40.00-60.00); LDL Cholesterol,Calculated 85.3 mg/dL (0.0-131.0); Potassium 4.9 mmol/L (3.5-5.5); Sodium 141 mmol/L (135-145); Total Protein 6.8 g/dL (6.2-8.2); Triglycerides 179.00 mg/dL (0.00-149.00); VLDL Calculation 35.80 mg/dL (5.00-40.00)
== END | disposition home or self-care (01) ==
LOC: LABWHC1 08:59
PROVIDERS: ATTEND Family Medicine
DX: Z12.5 Encounter for screening for malignant neoplasm of prostate (principal); I10 Essential (primary) hypertension; K21.00 Gastro-esophageal reflux disease with esophagitis, without bleeding; R74.01 Elevation of levels of liver transaminase levels; Z79.899 Other long term (current) drug therapy
CPT/HCPCS: 36415; 80053; 80061; 84153; 84443; 85025